=== PATIENT | male | born 1990 | race Asian ===

== ENCOUNTER 2018-11-17 11:16 | Inpatient (IN) | payer MEDICAID, OTHER ==
[~2018-11-17] VITALS: Ht 167.6 cm; Wt 68.9 kg
[2018-11-17] MEDS ORDERED: DIVA-76 PO (11:48)
[2018-11-17] MEDS ORDERED: PARO20TA24 PO (11:48)
[2018-11-17] MEDS ORDERED: DIVA125T32 PO (11:48)
[2018-11-17] MEDS ORDERED: ARIP5TAB8 PO (11:48)
[2018-11-17] MEDS ORDERED: PARO10TA89 PO (11:48)
[2018-11-17] MEDS ORDERED: QUET25TA PO (11:48)
[2018-11-17] MEDS ORDERED: PRAZ1 PO (11:48)
[2018-11-17 12:07] LABS: BASOPHILS % (AUTO) 0.3 % (0.0-2.0); HEMATOCRIT 46.8 % (41-53); HEMOGLOBIN 15.3 g/dL (13.5-17.5); LYMPHOCYTES % (AUTO) 13.6 % (22.0-44.0); MEAN CORPUSCULAR HEMOGLOBIN 29.8 pg (26.0-34.0); MEAN CORPUSCULAR HGB CONC 32.8 G/dL (31.0-37.0); MEAN CORPUSCULAR VOLUME 91 fL (80-100); MONOCYTES # (AUTO) 0.5 K/uL (0.1-1.0); MONOCYTES % (AUTO) 6.2 % (2.0-9.0); NEUTROPHILS # (AUTO) 6.1 K/uL (1.8-7.7); NEUTROPHILS % (AUTO) 78.9 % (40.0-70.0); PLATELET COUNT (AUTO) 217 K/uL (150-450); RED BLOOD CELL COUNT(AUTO) 5.15 MIL/uL (4.50-5.90); RED CELL DISTRIBUTION WIDTH 12.5 % (11.5-14.5)
[2018-11-17] MEDS ORDERED: SODIUM CHLORIDE 0.9% 250 ML IRRIG SOLUTION BOTTLE IRRIG ONE (12:15)
[2018-11-17] MEDS ORDERED: PERTUSS(ACELL),DIPH,TET VAC/PF 0.5 ML VIAL IM ONE (12:15)
[2018-11-17 12:57] LABS: ANION GAP 10 mmol/L (8-16); CALCIUM, TOTAL 10.2 mg/dL (8.8-10.5); CARBON DIOXIDE 28 mmol/L (22-29); CHLORIDE 102 mmol/L (98-107); CREATININE 1.17 mg/dL (0.60-1.30); GLOMERULAR FILTR. RATE CALC > 60 mL/min (>60); GLUCOSE,RANDOM 98 mg/dL (70-110); POTASSIUM 4.3 mmol/L (3.5-5.1); SODIUM SERUM 140 mmol/L (136-145); UREA NITROGEN, BLOOD 11 mg/dL (7-18)
[2018-11-17 13:03] LABS: ALANINE AMINOTRANSFERASE 42 U/L (12-78); ALBUMIN 4.3 g/dL (3.4-5.0); ALKALINE PHOSPHATASE 64 U/L (46-116); ASPARTATE AMINOTRANSFERASE 30 U/L (15-37); BILIRUBIN,TOTAL 0.3 mg/dL (0.1-1.0); TOTAL PROTEIN, SERUM 8.2 g/dL (6.4-8.2)
[2018-11-17 13:14] LABS: VALPROIC ACID 88 mcg/mL (50-100)
[2018-11-17] MEDS ORDERED: HALOPERIDOL 5 MG TABLET PO PRN (13:15)
[2018-11-17 16:11] VITALS: BP 135/90
[2018-11-17] MEDS ORDERED: ONDANSETRON HCL 4 MG TABLET PO PRN (19:45)
[2018-11-17] MEDS ORDERED: NICOTINE 14 MG/24 HOUR PATCH TD PRN (19:45)
[2018-11-17] MEDS ORDERED: IBUPROFEN 400 MG TABLET PO PRN (19:45)
[2018-11-17] MEDS ORDERED: ALBUTEROL SULFATE HFA 90 MCG/PUFF 8 GM INHALER IH PRN (19:45)
[2018-11-17] MEDS ORDERED: DOCUSATE SODIUM 100 MG CAPSULE PO PRN (19:45)
[2018-11-17] MEDS ORDERED: LOPERAMIDE HCL 2 MG CAPSULE PO PRN (19:45)
[2018-11-17] MEDS ORDERED: PETROLATUM,WHITE 28 GM JELLY TP PRN (19:45)
[2018-11-17] MEDS ORDERED: CloNIDine HCL 0.1 MG TABLET PO PRN (19:45)
[2018-11-17] MEDS ORDERED: MAG HYDROX/AL HYDROX/SIMETH ES 30 ML SUSPENSION UDCUP PO PRN (19:45)
[2018-11-17] MEDS ORDERED: MAGNESIUM HYDROXIDE SUSPENSION 30 ML UDCUP PO PRN (19:45)
[2018-11-17] MEDS ORDERED: GuaiFENesin/D-METHORPHAN [SUGAR-FREE] 200-20MG/10 ML SYRUP UDCUP PO PRN (19:45)
[2018-11-17] MEDS ORDERED: ACETAMINOPHEN 325 MG TABLET PO PRN (19:45)
[2018-11-18 05:22] VITALS: BP 128/76
[2018-11-18 06:42] LABS: BASOPHILS % (AUTO) 0.4 % (0.0-2.0); EOSINOPHILS % (AUTO) 4.4 % (1.0-6.0); HEMATOCRIT 45.3 % (41-53); HEMOGLOBIN 15.1 g/dL (13.5-17.5); LYMPHOCYTES % (AUTO) 31.6 % (22.0-44.0); MEAN CORPUSCULAR HEMOGLOBIN 30.4 pg (26.0-34.0); MEAN CORPUSCULAR HGB CONC 33.4 G/dL (31.0-37.0); MEAN CORPUSCULAR VOLUME 91 fL (80-100); MONOCYTES # (AUTO) 0.6 K/uL (0.1-1.0); MONOCYTES % (AUTO) 8.9 % (2.0-9.0); NEUTROPHILS # (AUTO) 3.5 K/uL (1.8-7.7); NEUTROPHILS % (AUTO) 54.7 % (40.0-70.0); PLATELET COUNT (AUTO) 214 K/uL (150-450); RED BLOOD CELL COUNT(AUTO) 4.97 MIL/uL (4.50-5.90); RED CELL DISTRIBUTION WIDTH 12.7 % (11.5-14.5)
[2018-11-18 07:16] LABS: ALANINE AMINOTRANSFERASE 36 U/L (12-78); ALBUMIN 3.7 g/dL (3.4-5.0); ALKALINE PHOSPHATASE 55 U/L (46-116); ANION GAP 5 mmol/L (8-16); ASPARTATE AMINOTRANSFERASE 26 U/L (15-37); BILIRUBIN,TOTAL 0.4 mg/dL (0.1-1.0); CALCIUM, TOTAL 9.8 mg/dL (8.8-10.5); CARBON DIOXIDE 32 mmol/L (22-29); CHLORIDE 104 mmol/L (98-107); CHOL/HDL RATIO 4.2 (4.2-7.3); CHOLESTEROL 142 mg/dL (131-200); CREATININE 0.98 mg/dL (0.60-1.30); GLOMERULAR FILTR. RATE CALC > 60 mL/min (>60); GLUCOSE,RANDOM 79 mg/dL (70-110); HDL CHOLESTEROL 34 mg/dL (40-60); LDL CHOL (CALC.) 73 mg/dL (0-130); POTASSIUM 4.6 mmol/L (3.5-5.1); SODIUM SERUM 141 mmol/L (136-145); THYROID STIMULATING HORMONE 1.61 uIU/mL (0.36-3.74); TOTAL PROTEIN, SERUM 6.8 g/dL (6.4-8.2); TRIGLYCERIDES 175 mg/dL (15-150); UREA NITROGEN, BLOOD 16 mg/dL (7-18)
[2018-11-18 07:58] LABS: HEMOGLOBIN A1C 5.6 % (4.5-6.2)
[2018-11-18 08:05] VITALS: BP 116/70
[2018-11-18 16:04] VITALS: BP 123/83
[2018-11-18] MEDS: QUEtiapine FUMARATE 100 MG TABLET PO SCH (20:36)
[2018-11-18] MEDS: LORazepam 2 MG TABLET PO PRN (20:37)
[2018-11-18] MEDS: ZOLPIDEM TARTRATE 10 MG TABLET PO PRN (20:37)
[2018-11-18] MEDS: DIVALPROEX SODIUM 250 MG DR TABLET PO SCH (20:37)
[2018-11-19 06:28] VITALS: BP 118/82
[2018-11-19 07:23] LABS: BILIRUBIN,URINE NEGATIVE (NEGATIVE); GLUCOSE, URINE (UA) NEGATIVE (NEGATIVE); KETONES,URINE NEGATIVE (NEGATIVE); LEUKOCYTE ESTERASE ,URINE NEGATIVE (NEGATIVE); NITRATE,URINE NEGATIVE (NEGATIVE); OCCULT BLOOD,URINE NEGATIVE (NEGATIVE); PH,URINE 7.5 (5.0-8.0); PROTEIN,URINE NEGATIVE (NEGATIVE); UROBILINOGEN,URINE 0.2 mg/dL (<=1.0)
[2018-11-19 07:28] LABS: APPEARANCE,URINE HAZY (CLEAR)
[2018-11-19 07:31] LABS: AMPHET/METH SCREEN,URINE NEGATIVE (NEGATIVE); BARBITURATE SCREEN, URINE NEGATIVE (NEGATIVE); BENZODIAZEPINES SCREEN,URINE NEGATIVE (NEGATIVE); CANNABINOID SCREEN,URINE NEGATIVE (NEGATIVE); COCAINE SCREEN,URINE NEGATIVE (NEGATIVE); METHADONE SCREEN, URINE NEGATIVE (NEGATIVE); OPIATE SCREEN,URINE NEGATIVE (NEGATIVE)
[2018-11-19 07:36] LABS: PHENCYCLIDINE SCREEN,URINE NEGATIVE (NEGATIVE)
[2018-11-19 08:04] VITALS: BP 112/76
[2018-11-19] MEDS: DIVALPROEX SODIUM 250 MG DR TABLET PO SCH ×2 (08:54→21:00)
[2018-11-19 16:23] VITALS: BP 143/78
[2018-11-19] MEDS: LORazepam 2 MG TABLET PO PRN (16:27)
[2018-11-19] MEDS ORDERED: DiphenhydrAMINE HCL 50 MG/ML VIAL ONE (19:02)
[2018-11-19] MEDS ORDERED: HALOPERIDOL LACTATE 5 MG/ML VIAL ONE (19:02)
[2018-11-19] MEDS ORDERED: LORazepam 2 MG/ML VIAL ONE (19:03)
[2018-11-19] MEDS ORDERED: LORazepam 2 MG/ML VIAL IM ONE (19:15)
[2018-11-19] MEDS ORDERED: HALOPERIDOL LACTATE 5 MG/ML VIAL IM ONE (19:15)
[2018-11-19] MEDS ORDERED: DiphenhydrAMINE HCL 50 MG/ML VIAL IM ONE (19:15)
[2018-11-19] MEDS: QUEtiapine FUMARATE 100 MG TABLET PO SCH (21:00)
[2018-11-20 08:11] VITALS: BP 138/69
[2018-11-20] MEDS: DIVALPROEX SODIUM 250 MG DR TABLET PO SCH ×2 (08:45→21:15)
[2018-11-20] MEDS: BACITRACIN 28.4 GM OINTMENT TP SCH ×2 (09:27→17:27)
[2018-11-20 16:54] VITALS: BP 142/67
[2018-11-20] MEDS: ZOLPIDEM TARTRATE 10 MG TABLET PO PRN (21:15)
[2018-11-20] MEDS: QUEtiapine FUMARATE 100 MG TABLET PO SCH (21:15)
[2018-11-21 08:04] VITALS: BP 128/82
[2018-11-21] MEDS: BACITRACIN 28.4 GM OINTMENT TP SCH ×2 (09:06→16:30)
[2018-11-21] MEDS: DIVALPROEX SODIUM 250 MG DR TABLET PO SCH ×2 (09:06→20:11)
[2018-11-21 16:04] VITALS: BP 140/85
[2018-11-21] MEDS: ZOLPIDEM TARTRATE 10 MG TABLET PO PRN (20:11)
[2018-11-21] MEDS: QUEtiapine FUMARATE 100 MG TABLET PO SCH (20:11)
[2018-11-22 06:23] VITALS: BP 126/82
[2018-11-22 08:03] VITALS: BP 138/91
[2018-11-22] MEDS: DIVALPROEX SODIUM 250 MG DR TABLET PO SCH ×2 (08:11→21:00)
[2018-11-22] MEDS: BACITRACIN 28.4 GM OINTMENT TP SCH ×2 (08:11→16:27)
[2018-11-22 16:00] VITALS: BP 140/72
[2018-11-22] MEDS: LORazepam 2 MG TABLET PO PRN (17:15)
[2018-11-22] MEDS: QUEtiapine FUMARATE 100 MG TABLET PO SCH (20:59)
[2018-11-22] MEDS: ZOLPIDEM TARTRATE 10 MG TABLET PO PRN (21:00)
[2018-11-23 04:22] VITALS: BP 105/67
[2018-11-23 08:36] VITALS: BP 139/78
[2018-11-23] MEDS: BACITRACIN 28.4 GM OINTMENT TP SCH ×2 (08:45→16:40)
[2018-11-23] MEDS: DIVALPROEX SODIUM 250 MG DR TABLET PO SCH ×2 (08:46→20:46)
[2018-11-23 16:00] VITALS: BP 138/82
[2018-11-23] MEDS: ZOLPIDEM TARTRATE 10 MG TABLET PO PRN (20:46)
[2018-11-23] MEDS: LORazepam 2 MG TABLET PO PRN (20:46)
[2018-11-23] MEDS: QUEtiapine FUMARATE 100 MG TABLET PO SCH (20:46)
[2018-11-24 06:28] VITALS: BP 140/88
[2018-11-24 08:20] VITALS: BP 120/79
[2018-11-24] MEDS: DIVALPROEX SODIUM 250 MG DR TABLET PO SCH ×2 (08:38→20:46)
[2018-11-24] MEDS: BACITRACIN 28.4 GM OINTMENT TP SCH ×2 (08:39→17:01)
[2018-11-24 16:14] VITALS: BP 142/88
[2018-11-24] MEDS: QUEtiapine FUMARATE 100 MG TABLET PO SCH (20:46)
[2018-11-24] MEDS: LORazepam 2 MG TABLET PO PRN (20:46)
[2018-11-25 03:36] VITALS: BP 109/66
[2018-11-25 08:09] VITALS: BP 133/74
[2018-11-25] MEDS: DIVALPROEX SODIUM 250 MG DR TABLET PO SCH ×2 (09:22→20:25)
[2018-11-25] MEDS: BACITRACIN 28.4 GM OINTMENT TP SCH ×2 (09:22→16:31)
[2018-11-25 16:22] VITALS: BP 130/80
[2018-11-25] MEDS: QUEtiapine FUMARATE 100 MG TABLET PO SCH (20:25)
[2018-11-25] MEDS: ZOLPIDEM TARTRATE 10 MG TABLET PO PRN (20:25)
[2018-11-26 04:11] VITALS: BP_SYST 118; BP_SYST 128; BP_DIAS 82; BP_DIAS 85
[2018-11-26 08:15] VITALS: BP 137/83
[2018-11-26] MEDS: BACITRACIN 28.4 GM OINTMENT TP SCH ×2 (08:28→16:39)
[2018-11-26] MEDS: DIVALPROEX SODIUM 250 MG DR TABLET PO SCH ×2 (08:28→20:16)
[2018-11-26 16:06] VITALS: BP 123/79
[2018-11-26] MEDS: ZOLPIDEM TARTRATE 10 MG TABLET PO PRN (20:16)
[2018-11-26] MEDS: QUEtiapine FUMARATE 100 MG TABLET PO SCH (20:16)
[2018-11-27 05:45] VITALS: BP 118/78
[2018-11-27 08:16] VITALS: BP 131/85
[2018-11-27] MEDS: DIVALPROEX SODIUM 250 MG DR TABLET PO SCH ×2 (08:49→21:06)
[2018-11-27] MEDS: BACITRACIN 28.4 GM OINTMENT TP SCH ×2 (08:52→17:01)
[2018-11-27 16:00] VITALS: BP 130/78
[2018-11-27] MEDS: QUEtiapine FUMARATE 100 MG TABLET PO SCH (21:06)
[2018-11-27] MEDS: LORazepam 2 MG TABLET PO PRN (21:06)
[2018-11-28 08:00] VITALS: BP 134/87
[2018-11-28] MEDS: BENZTROPINE MESYLATE 1 MG TABLET PO SCH ×3 (09:00→16:39)
[2018-11-28] MEDS: DIVALPROEX SODIUM 250 MG DR TABLET PO SCH ×2 (10:03→20:46)
[2018-11-28] MEDS: BACITRACIN 28.4 GM OINTMENT TP SCH ×2 (10:11→16:39)
[2018-11-28 16:00] VITALS: BP 135/88
[2018-11-28] MEDS: QUEtiapine FUMARATE 100 MG TABLET PO SCH (20:46)
[2018-11-28] MEDS: LORazepam 2 MG TABLET PO PRN (20:46)
[2018-11-29 05:44] VITALS: BP 129/86
[2018-11-29 08:13] VITALS: BP 113/65
[2018-11-29] MEDS: BENZTROPINE MESYLATE 1 MG TABLET PO SCH ×2 (08:53→17:00)
[2018-11-29] MEDS: DIVALPROEX SODIUM 250 MG DR TABLET PO SCH (08:53)
[2018-11-29] MEDS: BACITRACIN 28.4 GM OINTMENT TP SCH (08:53)
[2018-11-29] MEDS ORDERED: DIVA-76 PO (15:48)
[2018-11-29] MEDS ORDERED: QUET100T PO (15:48)
[2018-11-29] MEDS ORDERED: BENZ1TAB10 PO (15:48)
[2018-11-29 17:24] VITALS: BP 123/86
== END 2018-11-29 18:37 | disposition home or self-care (01) | DRG 753 ==
LOC: EMS 11:26 → B3A 14:09
DX: F31.5 Bipolar disorder, current episode depressed, severe, with psychotic features (principal); Z91.14 Patient's other noncompliance with medication regimen; R45.851 Suicidal ideations; S60.511A Abrasion of right hand, initial encounter; X58.XXXA Exposure to other specified factors, initial encounter; Y04.0XXA Assault by unarmed brawl or fight, initial encounter; K59.00 Constipation, unspecified; F42.9 Obsessive-compulsive disorder, unspecified; E78.5 Hyperlipidemia, unspecified; Z88.0 Allergy status to penicillin; Z88.1 Allergy status to other antibiotic agents; Z88.2 Allergy status to sulfonamides; Y93.89 Activity, other specified; Y92.89 Other specified places as the place of occurrence of the external cause; Y99.8 Other external cause status; Z79.899 Other long term (current) drug therapy
CPT/HCPCS: 80307; 83036; 84443; 90715; G0480; J1200; J1630; J2060

== ENCOUNTER 2022-03-04 22:18 | Emergency (ER) | payer MEDICAID, OTHER ==
[~2022-03-04] VITALS: Ht 167.6 cm; Wt 70.0 kg
[~2022-03-04 22:18] MED LIST: BENZ1TAB96 PO; DIVA-111 PO; QUET100T PO
[2022-03-05 01:22] VITALS: BP 129/80
[2022-03-05] MEDS ORDERED: LORazepam 1 MG TABLET PO ONE (01:45)
== END 2022-03-05 03:00 | disposition home or self-care (01) ==
LOC: EMS 22:18
DX: F41.9 Anxiety disorder, unspecified (principal); F20.9 Schizophrenia, unspecified; F32.9 Major depressive disorder, single episode, unspecified; Z88.0 Allergy status to penicillin; Z88.2 Allergy status to sulfonamides
CPT/HCPCS: 99283

== ENCOUNTER 2022-03-07 18:51 | Inpatient (IN) | payer MEDICARE, OTHER ==
[~2022-03-07] VITALS: Ht 175.3 cm; Wt 63.6 kg
[2022-03-07] MEDS ORDERED: HYDROmorphone HCL 2 MG/ML SYRINGE IVP ONE (20:30)
[2022-03-07] MEDS ORDERED: SODIUM CHLORIDE 0.9% 1,000 ML IV ONE (20:30)
[2022-03-07 20:35] LABS: BASOPHILS % (AUTO) 0.1 % (0.0-2.0); EOSINOPHILS % (AUTO) 0.4 % (1.0-6.0); HEMATOCRIT 41.3 % (41-53); HEMOGLOBIN 13.8 g/dL (13.5-17.5); LYMPHOCYTES # (AUTO) 0.7 K/uL (1.0-4.8); LYMPHOCYTES % (AUTO) 4.7 % (22.0-44.0); MEAN CORPUSCULAR HEMOGLOBIN 29.3 pg (26.0-34.0); MEAN CORPUSCULAR HGB CONC 33.5 G/dL (31.0-37.0); MEAN CORPUSCULAR VOLUME 87 fL (80-100); MONOCYTES # (AUTO) 1.3 K/uL (0.1-1.0); MONOCYTES % (AUTO) 8.9 % (2.0-9.0); NEUTROPHILS # (AUTO) 12.9 K/uL (1.8-7.7); PLATELET COUNT (AUTO) 180 K/uL (150-450); RED BLOOD CELL COUNT(AUTO) 4.73 MIL/uL (4.50-5.90); RED CELL DISTRIBUTION WIDTH 12.4 % (11.5-14.5)
[2022-03-07 20:38] LABS: NEUTROPHILS % (AUTO) 85.9 % (40.0-70.0)
[2022-03-07 20:45] LABS: ANION GAP 10 mmol/L (8-16); CALCIUM, TOTAL 9.8 mg/dL (8.8-10.5); CARBON DIOXIDE 31 mmol/L (22-29); CHLORIDE 103 mmol/L (98-107); CREATININE 0.85 mg/dL (0.60-1.30); GLUCOSE,RANDOM 105 mg/dL (70-110); POTASSIUM 3.6 mmol/L (3.5-5.1); SODIUM SERUM 144 mmol/L (136-145); UREA NITROGEN, BLOOD 10 mg/dL (7-18)
[2022-03-07 20:46] LABS: GLOMERULAR FILTR. RATE CALC > 60 mL/min (>60)
[2022-03-07 20:56] LABS: ALANINE AMINOTRANSFERASE 68 U/L (12-78); ALBUMIN 3.8 g/dL (3.4-5.0); ALKALINE PHOSPHATASE 84 U/L (46-116); ASPARTATE AMINOTRANSFERASE 43 U/L (15-37); BILIRUBIN,TOTAL 0.8 mg/dL (0.1-1.0); CREATINE KINASE, TOTAL ONLY 83 U/L (39-308); LIPASE 39 U/L (73-393); TOTAL PROTEIN, SERUM 7.2 g/dL (6.4-8.2)
[2022-03-07 20:57] LABS: LACTIC ACID 0.9 mmol/L (0.4-2.0)
[2022-03-07 21:01] LABS: PLATELET MORPHOLOGY COMMENT LARGE PLTS PRESENT
[2022-03-07] MEDS ORDERED: IOHEXOL 300 MG/ML 100 ML VIAL ONE (21:41)
[2022-03-07] MEDS ORDERED: SODIUM CHLORIDE 0.9% 100 ML ONE (21:41)
[2022-03-07] MEDS ORDERED: CIPROFLOXACIN 400 MG/D5% WATER 200 ML IV ONE (22:45)
[2022-03-07] MEDS ORDERED: MetroNIDAZOLE 500 MG/NACL 100 ML IV ONE (23:00)
[2022-03-07] MEDS ORDERED: CefTRIAXone 1 GM/DEXTROSE 50 ML IV ONE (23:00)
[2022-03-07 23:08] LABS: COVID AG,FIA SOURCE NASAL SWAB
[2022-03-07 23:11] LABS: APPEARANCE,URINE CLEAR (CLEAR); BILIRUBIN,URINE NEGATIVE (NEGATIVE); GLUCOSE, URINE (UA) NEGATIVE (NEGATIVE); KETONES,URINE =>150 mg/dL (NEGATIVE); LEUKOCYTE ESTERASE ,URINE NEGATIVE (NEGATIVE); NITRATE,URINE NEGATIVE (NEGATIVE); OCCULT BLOOD,URINE NEGATIVE (NEGATIVE); PH,URINE 7.5 (5.0-8.0); PROTEIN,URINE TRACE mg/dL (NEGATIVE)
[2022-03-07 23:20] LABS: BACTERIA,URINE None Seen /HPF (None Seen); RBC,URINE None Seen /HPF (0-2); SQUAMOUS EPITHELIAL CELL,UR None Seen /LPF (None Seen); WBC,URINE None Seen /HPF (0-5)
[2022-03-08 00:46] VITALS: BP 131/77
[2022-03-08] MEDS: MORPHINE SULFATE 2 MG/ML SYRINGE IVP PRN ×3 (01:26→09:00)
[2022-03-08] MEDS: DEXTROSE 5%-0.45% SODIUM CHL 1,000 ML IV SCH ×2 (01:26→14:50)
[2022-03-08 05:14] VITALS: BP 133/80
[2022-03-08 08:00] VITALS: BP 132/73
[2022-03-08] MEDS ORDERED: SODIUM CHLORIDE 0.9% 500 ML IV ONE (13:11)
[2022-03-08] MEDS: MetroNIDAZOLE 500 MG/NACL 100 ML IV SCH ×2 (13:18→19:32)
[2022-03-08] MEDS ORDERED: VANCOMYCIN HCL 1 GM/VIAL ONE (14:16)
[2022-03-08] MEDS ORDERED: IOHEXOL 240 MG/ML 20 ML VIAL ONE (14:16)
[2022-03-08] MEDS ORDERED: BUPIVACAINE 0.25%/EPI 1:200,000/PF 10 ML VIAL ONE ×4 (14:16→16:49)
[2022-03-08] MEDS ORDERED: RINGERS SOLUTION,LACTATED 1,000 ML IV ONE ×2 (15:27→17:41)
[2022-03-08 16:00] VITALS: BP 124/77
[2022-03-08] MEDS ORDERED: FentaNYL CITRATE PF 100 MCG/2 ML VIAL IVP PRN (17:15)
[2022-03-08] MEDS ORDERED: HYDROmorphone HCL 2 MG/ML SYRINGE IVP PRN ×2 (17:15→18:15)
[2022-03-08] MEDS ORDERED: SUGAMMADEX SODIUM 200 MG/2 ML VIAL IVP ONE (17:31)
[2022-03-08] MEDS ORDERED: MORPHINE SULFATE 4 MG/ML SYRINGE IVP PRN (18:15)
[2022-03-08] MEDS ORDERED: HYDROCODONE/ACETAMINOPHEN 5-325 MG TABLET PO PRN (18:15)
[2022-03-08 19:28] VITALS: BP 119/68
[2022-03-08] MEDS: FAMOTIDINE 20 MG TABLET PO SCH (21:17)
[2022-03-08] MEDS: CefTRIAXone SODIUM 2 GM in DEXTROSE 5%-WATER 50 ML IV SCH (23:35)
[2022-03-09] MEDS ORDERED: BISACODYL 10 MG RECTAL RECTAL SUPPOSITORY PR PRN (00:15)
[2022-03-09] MEDS ORDERED: ALBUTEROL SULFATE 2.5 MG/0.5 ML NEB SOLUTION NEB PRN (00:15)
[2022-03-09] MEDS ORDERED: MAGNESIUM HYDROXIDE SUSPENSION 30 ML UDCUP PO PRN (00:15)
[2022-03-09] MEDS ORDERED: ACETAMINOPHEN 325 MG TABLET PO PRN (00:15)
[2022-03-09] MEDS ORDERED: ZOLPIDEM TARTRATE 5 MG TABLET PO PRN (00:15)
[2022-03-09] MEDS ORDERED: IPRATROPIUM BROMIDE 0.5 MG/2.5 ML NEB SOLUTION NEB PRN (00:15)
[2022-03-09] MEDS ORDERED: ONDANSETRON HCL 4 MG/2 ML VIAL IVP PRN (00:15)
[2022-03-09] MEDS: DEXTROSE 5%-0.45% SODIUM CHL 1,000 ML IV SCH (01:45)
[2022-03-09] MEDS ORDERED: SODIUM CHLORIDE 0.9% 500 ML IV ONE (01:47)
[2022-03-09] MEDS: MORPHINE SULFATE 2 MG/ML SYRINGE IVP PRN ×3 (01:58→08:55)
[2022-03-09] MEDS: MetroNIDAZOLE 500 MG/NACL 100 ML IV SCH ×3 (03:14→19:37)
[2022-03-09 04:30] VITALS: BP 142/93
[2022-03-09] MEDS ORDERED: KETOROLAC TROMETHAMINE 60 MG/2 ML VIAL IM ONE (06:29)
[2022-03-09] MEDS ORDERED: FentaNYL CITRATE PF 100 MCG/2 ML VIAL IVP ONE (06:29)
[2022-03-09] MEDS ORDERED: ROCURONIUM BROMIDE 10 MG/ML 5 ML VIAL IVP ONE (06:29)
[2022-03-09] MEDS ORDERED: LIDOCAINE/PF 2% 5 ML VIAL IM ONE (06:29)
[2022-03-09] MEDS ORDERED: PROPOFOL 1% 20 ML VIAL IVP ONE (06:29)
[2022-03-09] MEDS ORDERED: ONDANSETRON HCL 4 MG/2 ML VIAL IVP ONE (06:29)
[2022-03-09] MEDS ORDERED: METOCLOPRAMIDE HCL 5 MG/ML 2 ML VIAL IVP ONE (06:29)
[2022-03-09 07:29] VITALS: BP 118/73
[2022-03-09 07:35] LABS: EOSINOPHILS % (AUTO) 0 % (1.0-6.0); HEMOGLOBIN 12.4 g/dL (13.5-17.5); LYMPHOCYTES # (AUTO) 0.4 K/uL (1.0-4.8); LYMPHOCYTES % (AUTO) 2.3 % (22.0-44.0); MEAN CORPUSCULAR HEMOGLOBIN 29.5 pg (26.0-34.0); MEAN CORPUSCULAR HGB CONC 33.4 G/dL (31.0-37.0); MEAN CORPUSCULAR VOLUME 88 fL (80-100); MONOCYTES % (AUTO) 6.1 % (2.0-9.0); NEUTROPHILS # (AUTO) 14.4 K/uL (1.8-7.7); PLATELET COUNT (AUTO) 170 K/uL (150-450); RED BLOOD CELL COUNT(AUTO) 4.19 MIL/uL (4.50-5.90); RED CELL DISTRIBUTION WIDTH 12.3 % (11.5-14.5)
[2022-03-09 07:46] LABS: NEUTROPHILS % (AUTO) 91.6 % (40.0-70.0)
[2022-03-09] MEDS: OXYGEN THERAPY IH SCH ×2 (08:00→20:00)
[2022-03-09 08:07] LABS: ALANINE AMINOTRANSFERASE 140 U/L (12-78); ALBUMIN 2.6 g/dL (3.4-5.0); ALKALINE PHOSPHATASE 127 U/L (46-116); ANION GAP 5 mmol/L (8-16); ASPARTATE AMINOTRANSFERASE 62 U/L (15-37); BILIRUBIN,TOTAL 2.7 mg/dL (0.1-1.0); CALCIUM, TOTAL 8.7 mg/dL (8.8-10.5); CARBON DIOXIDE 29 mmol/L (22-29); CHLORIDE 105 mmol/L (98-107); CREATININE 0.86 mg/dL (0.60-1.30); GLOMERULAR FILTR. RATE CALC > 60 mL/min (>60); GLUCOSE,RANDOM 124 mg/dL (70-110); POTASSIUM 4.1 mmol/L (3.5-5.1); SODIUM SERUM 139 mmol/L (136-145); TOTAL PROTEIN, SERUM 5.9 g/dL (6.4-8.2); UREA NITROGEN, BLOOD 7 mg/dL (7-18)
[2022-03-09] MEDS: FAMOTIDINE 20 MG TABLET PO SCH ×2 (08:45→21:25)
[2022-03-09] MEDS: DIVALPROEX SODIUM 250 MG DR TABLET PO SCH ×3 (08:46→21:00)
[2022-03-09] MEDS: BENZTROPINE MESYLATE 1 MG TABLET PO SCH ×3 (08:47→21:00)
[2022-03-09] MEDS ORDERED: PANTOPRAZOLE SODIUM 40 MG/VIAL IVP SCH (09:00)
[2022-03-09] MEDS ORDERED: DOCUSATE SODIUM 100 MG CAPSULE PO SCH (09:00)
[2022-03-09] MEDS: HYDROCODONE/ACETAMINOPHEN 5-325 MG TABLET PO PRN ×2 (10:16→16:58)
[2022-03-09 15:42] VITALS: BP 117/72
[2022-03-09 19:38] VITALS: BP 124/77
[2022-03-09] MEDS ORDERED: QUEtiapine FUMARATE 100 MG TABLET PO SCH (21:00)
[2022-03-09] MEDS: CefTRIAXone SODIUM 2 GM in DEXTROSE 5%-WATER 50 ML IV SCH (22:42)
[2022-03-10] MEDS: DEXTROSE 5%-0.45% SODIUM CHL 1,000 ML IV SCH (01:22)
[2022-03-10] MEDS: MetroNIDAZOLE 500 MG/NACL 100 ML IV SCH ×3 (03:57→19:40)
[2022-03-10 04:24] VITALS: BP 126/78
[2022-03-10 06:59] LABS: BASOPHILS % (AUTO) 0.4 % (0.0-2.0); EOSINOPHILS % (AUTO) 1.4 % (1.0-6.0); HEMATOCRIT 39.4 % (41-53); HEMOGLOBIN 13.1 g/dL (13.5-17.5); LYMPHOCYTES # (AUTO) 1.4 K/uL (1.0-4.8); LYMPHOCYTES % (AUTO) 15.1 % (22.0-44.0); MEAN CORPUSCULAR HEMOGLOBIN 29.4 pg (26.0-34.0); MEAN CORPUSCULAR HGB CONC 33.3 G/dL (31.0-37.0); MEAN CORPUSCULAR VOLUME 89 fL (80-100); MONOCYTES # (AUTO) 0.5 K/uL (0.1-1.0); MONOCYTES % (AUTO) 5.8 % (2.0-9.0); NEUTROPHILS % (AUTO) 77.3 % (40.0-70.0); PLATELET COUNT (AUTO) 203 K/uL (150-450); RED BLOOD CELL COUNT(AUTO) 4.45 MIL/uL (4.50-5.90); RED CELL DISTRIBUTION WIDTH 12.6 % (11.5-14.5)
[2022-03-10 07:22] LABS: ALANINE AMINOTRANSFERASE 105 U/L (12-78); ALBUMIN 2.8 g/dL (3.4-5.0); ALKALINE PHOSPHATASE 122 U/L (46-116); ANION GAP 7 mmol/L (8-16); ASPARTATE AMINOTRANSFERASE 32 U/L (15-37); BILIRUBIN,TOTAL 0.8 mg/dL (0.1-1.0); CALCIUM, TOTAL 9.2 mg/dL (8.8-10.5); CARBON DIOXIDE 30 mmol/L (22-29); CHLORIDE 105 mmol/L (98-107); CREATININE 0.75 mg/dL (0.60-1.30); GLUCOSE,RANDOM 83 mg/dL (70-110); POTASSIUM 3.1 mmol/L (3.5-5.1); SODIUM SERUM 142 mmol/L (136-145); TOTAL PROTEIN, SERUM 6.5 g/dL (6.4-8.2); UREA NITROGEN, BLOOD 3 mg/dL (7-18)
[2022-03-10 07:23] LABS: GLOMERULAR FILTR. RATE CALC > 60 mL/min (>60)
[2022-03-10 08:00] VITALS: BP 141/72
[2022-03-10] MEDS: OXYGEN THERAPY IH SCH ×2 (08:00→19:40)
[2022-03-10] MEDS: FAMOTIDINE 20 MG TABLET PO SCH ×2 (08:28→21:12)
[2022-03-10] MEDS: BENZTROPINE MESYLATE 1 MG TABLET PO SCH (08:30)
[2022-03-10] MEDS: DIVALPROEX SODIUM 250 MG DR TABLET PO SCH (08:30)
[2022-03-10] MEDS: HYDROCODONE/ACETAMINOPHEN 5-325 MG TABLET PO PRN (09:02)
[2022-03-10] MEDS ORDERED: POTASSIUM CHL 10 MEQ/WATER 50 ML IV PRN (13:00)
[2022-03-10] MEDS ORDERED: RisperiDONE 4 MG TABLET PO SCH (13:00)
[2022-03-10] MEDS: POTASSIUM CHLORIDE 20 MEQ ER TABLET PO PRN (15:08)
[2022-03-10 16:00] VITALS: BP 127/89
[2022-03-10 19:40] VITALS: BP 129/81
[2022-03-10] MEDS: RisperiDONE 4 MG TABLET PO SCH (21:12)
[2022-03-10] MEDS: CefTRIAXone SODIUM 2 GM in DEXTROSE 5%-WATER 50 ML IV SCH (23:13)
[2022-03-11] MEDS: POTASSIUM CHLORIDE 20 MEQ ER TABLET PO PRN (00:36)
[2022-03-11] MEDS: MetroNIDAZOLE 500 MG/NACL 100 ML IV SCH ×3 (03:18→20:01)
[2022-03-11 04:49] VITALS: BP 113/66
[2022-03-11] MEDS: HYDROCODONE/ACETAMINOPHEN 5-325 MG TABLET PO PRN (05:34)
[2022-03-11 05:37] LABS: BASOPHILS % (AUTO) 0.8 % (0.0-2.0); EOSINOPHILS % (AUTO) 4.3 % (1.0-6.0); HEMATOCRIT 42.2 % (41-53); HEMOGLOBIN 14.1 g/dL (13.5-17.5); LYMPHOCYTES # (AUTO) 1.3 K/uL (1.0-4.8); LYMPHOCYTES % (AUTO) 18.4 % (22.0-44.0); MEAN CORPUSCULAR HEMOGLOBIN 29.6 pg (26.0-34.0); MEAN CORPUSCULAR HGB CONC 33.5 G/dL (31.0-37.0); MEAN CORPUSCULAR VOLUME 88 fL (80-100); MONOCYTES # (AUTO) 0.5 K/uL (0.1-1.0); MONOCYTES % (AUTO) 7.6 % (2.0-9.0); NEUTROPHILS # (AUTO) 4.9 K/uL (1.8-7.7); NEUTROPHILS % (AUTO) 68.9 % (40.0-70.0); PLATELET COUNT (AUTO) 268 K/uL (150-450); RED BLOOD CELL COUNT(AUTO) 4.78 MIL/uL (4.50-5.90); RED CELL DISTRIBUTION WIDTH 12.4 % (11.5-14.5)
[2022-03-11 05:53] LABS: ALANINE AMINOTRANSFERASE 105 U/L (12-78); ALBUMIN 3.2 g/dL (3.4-5.0); ALKALINE PHOSPHATASE 152 U/L (46-116); ANION GAP 7 mmol/L (8-16); ASPARTATE AMINOTRANSFERASE 52 U/L (15-37); BILIRUBIN,TOTAL 0.8 mg/dL (0.1-1.0); CALCIUM, TOTAL 9.6 mg/dL (8.8-10.5); CARBON DIOXIDE 32 mmol/L (22-29); CHLORIDE 101 mmol/L (98-107); GLUCOSE,RANDOM 90 mg/dL (70-110); POTASSIUM 4.1 mmol/L (3.5-5.1); SODIUM SERUM 140 mmol/L (136-145); TOTAL PROTEIN, SERUM 7.2 g/dL (6.4-8.2); UREA NITROGEN, BLOOD 5 mg/dL (7-18)
[2022-03-11 05:56] LABS: GLOMERULAR FILTR. RATE CALC > 60 mL/min (>60)
[2022-03-11] MEDS: OXYGEN THERAPY IH SCH ×2 (08:00→20:01)
[2022-03-11] MEDS: FAMOTIDINE 20 MG TABLET PO SCH ×2 (08:21→20:02)
[2022-03-11] MEDS: FluvoxaMINE MALEATE 50 MG TABLET PO SCH (08:21)
[2022-03-11] MEDS: BuPROPion HCL XL 150 MG ER TABLET PO SCH (08:21)
[2022-03-11 08:37] VITALS: BP 103/63
[2022-03-11 15:48] VITALS: BP 120/72
[2022-03-11] MEDS: RisperiDONE 4 MG TABLET PO SCH (20:02)
[2022-03-11 20:14] VITALS: BP 127/77
[2022-03-11] MEDS: CefTRIAXone SODIUM 2 GM in DEXTROSE 5%-WATER 50 ML IV SCH (23:37)
[2022-03-12] MEDS: MetroNIDAZOLE 500 MG/NACL 100 ML IV SCH ×3 (03:36→20:17)
[2022-03-12 04:05] VITALS: BP 106/59
[2022-03-12 07:44] LABS: BASOPHILS % (AUTO) 0.6 % (0.0-2.0); EOSINOPHILS % (AUTO) 7.1 % (1.0-6.0); HEMATOCRIT 40.3 % (41-53); HEMOGLOBIN 13.4 g/dL (13.5-17.5); LYMPHOCYTES % (AUTO) 12.5 % (22.0-44.0); MEAN CORPUSCULAR HEMOGLOBIN 29.4 pg (26.0-34.0); MEAN CORPUSCULAR HGB CONC 33.2 G/dL (31.0-37.0); MEAN CORPUSCULAR VOLUME 88 fL (80-100); MONOCYTES # (AUTO) 0.7 K/uL (0.1-1.0); MONOCYTES % (AUTO) 8.4 % (2.0-9.0); NEUTROPHILS # (AUTO) 5.8 K/uL (1.8-7.7); NEUTROPHILS % (AUTO) 71.4 % (40.0-70.0); PLATELET COUNT (AUTO) 298 K/uL (150-450); RED BLOOD CELL COUNT(AUTO) 4.56 MIL/uL (4.50-5.90); RED CELL DISTRIBUTION WIDTH 12.4 % (11.5-14.5)
[2022-03-12 08:06] LABS: ALANINE AMINOTRANSFERASE 203 U/L (12-78); ALBUMIN 2.9 g/dL (3.4-5.0); ALKALINE PHOSPHATASE 152 U/L (46-116); ANION GAP 6 mmol/L (8-16); ASPARTATE AMINOTRANSFERASE 252 U/L (15-37); BILIRUBIN,TOTAL 0.6 mg/dL (0.1-1.0); CALCIUM, TOTAL 9.3 mg/dL (8.8-10.5); CARBON DIOXIDE 31 mmol/L (22-29); CHLORIDE 102 mmol/L (98-107); CREATININE 0.82 mg/dL (0.60-1.30); GLUCOSE,RANDOM 88 mg/dL (70-110); POTASSIUM 4.1 mmol/L (3.5-5.1); SODIUM SERUM 139 mmol/L (136-145); TOTAL PROTEIN, SERUM 6.5 g/dL (6.4-8.2); UREA NITROGEN, BLOOD 12 mg/dL (7-18)
[2022-03-12 08:07] LABS: GLOMERULAR FILTR. RATE CALC > 60 mL/min (>60)
[2022-03-12 08:21] VITALS: BP 106/66
[2022-03-12] MEDS: FluvoxaMINE MALEATE 50 MG TABLET PO SCH (08:57)
[2022-03-12] MEDS: FAMOTIDINE 20 MG TABLET PO SCH ×2 (08:57→20:17)
[2022-03-12] MEDS: BuPROPion HCL XL 150 MG ER TABLET PO SCH (08:57)
[2022-03-12] MEDS ORDERED: CLIN300C58 PO (10:41)
[2022-03-12] MEDS ORDERED: LEVO750T68 PO (10:41)
[2022-03-12 15:31] VITALS: BP 102/67
[2022-03-12 20:10] VITALS: BP 100/60
[2022-03-12] MEDS: RisperiDONE 4 MG TABLET PO SCH (20:17)
[2022-03-12] MEDS: CefTRIAXone SODIUM 2 GM in DEXTROSE 5%-WATER 50 ML IV SCH (22:30)
[2022-03-13] MEDS: MetroNIDAZOLE 500 MG/NACL 100 ML IV SCH (03:44)
[2022-03-13 06:30] VITALS: BP 105/62
[2022-03-13 06:45] LABS: BASOPHILS % (AUTO) 0.6 % (0.0-2.0); EOSINOPHILS % (AUTO) 10.1 % (1.0-6.0); HEMATOCRIT 39.8 % (41-53); HEMOGLOBIN 13.3 g/dL (13.5-17.5); LYMPHOCYTES # (AUTO) 1.1 K/uL (1.0-4.8); LYMPHOCYTES % (AUTO) 13.2 % (22.0-44.0); MEAN CORPUSCULAR HEMOGLOBIN 29.5 pg (26.0-34.0); MEAN CORPUSCULAR HGB CONC 33.3 G/dL (31.0-37.0); MEAN CORPUSCULAR VOLUME 89 fL (80-100); MONOCYTES # (AUTO) 0.8 K/uL (0.1-1.0); MONOCYTES % (AUTO) 9.8 % (2.0-9.0); NEUTROPHILS # (AUTO) 5.5 K/uL (1.8-7.7); NEUTROPHILS % (AUTO) 66.3 % (40.0-70.0); PLATELET COUNT (AUTO) 326 K/uL (150-450); PROTHROMBIN TIME 10.8 SEC (9.4-11.6); RED BLOOD CELL COUNT(AUTO) 4.49 MIL/uL (4.50-5.90); RED CELL DISTRIBUTION WIDTH 12.5 % (11.5-14.5)
[2022-03-13 06:52] LABS: ALANINE AMINOTRANSFERASE 388 U/L (12-78); ALKALINE PHOSPHATASE 151 U/L (46-116); ANION GAP 2 mmol/L (8-16); ASPARTATE AMINOTRANSFERASE 363 U/L (15-37); BILIRUBIN,TOTAL 0.5 mg/dL (0.1-1.0); CALCIUM, TOTAL 9.4 mg/dL (8.8-10.5); CARBON DIOXIDE 32 mmol/L (22-29); CHLORIDE 103 mmol/L (98-107); CREATININE 0.89 mg/dL (0.60-1.30); GLUCOSE,RANDOM 97 mg/dL (70-110); POTASSIUM 4.4 mmol/L (3.5-5.1); SODIUM SERUM 137 mmol/L (136-145); TOTAL PROTEIN, SERUM 6.6 g/dL (6.4-8.2); UREA NITROGEN, BLOOD 12 mg/dL (7-18)
[2022-03-13 06:56] LABS: GLOMERULAR FILTR. RATE CALC > 60 mL/min (>60)
[2022-03-13 07:54] VITALS: BP 100/58
[2022-03-13] MEDS: BuPROPion HCL XL 150 MG ER TABLET PO SCH (09:16)
[2022-03-13] MEDS: FluvoxaMINE MALEATE 50 MG TABLET PO SCH (09:16)
[2022-03-13] MEDS: FAMOTIDINE 20 MG TABLET PO SCH (09:16)
== END 2022-03-13 12:45 | DRG 854 ==
LOC: EMS 18:51 → 6S 03-08 00:51
PROVIDERS: ADMIT Hospitalist; ATTEND Hospitalist
PROC: 0FT40ZZ Resection of Gallbladder, Open Approach (ICD-10-PCS; principal; 2022-03-08 16:20)
DX: A41.9 Sepsis, unspecified organism (principal); K80.01 Calculus of gallbladder with acute cholecystitis with obstruction; K82.A1 Gangrene of gallbladder in cholecystitis; F42.9 Obsessive-compulsive disorder, unspecified; D64.9 Anemia, unspecified; R73.9 Hyperglycemia, unspecified; E87.6 Hypokalemia; F32.A Depression, unspecified; Z88.1 Allergy status to other antibiotic agents; Z88.0 Allergy status to penicillin; Z79.899 Other long term (current) drug therapy; Z88.2 Allergy status to sulfonamides
CPT/HCPCS: 74177; 80053; 81001; 82550; 83605; 83690; 84132; 85025; 85610; 86850; 86900; 86901; 87081; 88300; 88304; 99285; C9113; G0238; G0378; J0690; J0696; J0744; J1170; J1885; J2270; J2405; J2704; J2765; J3010; J3370; J3490; J7030; J7040; J7050; J7060; J7120; Q9966; Q9967

== ENCOUNTER 2022-10-13 20:29 | Emergency (ER) | payer MEDICARE, OTHER ==
[~2022-10-13] VITALS: Ht 172.7 cm; Wt 59.1 kg
[~2022-10-13 20:29] MED LIST changes: +BENZ1TAB84 PO; -BENZ1TAB96 PO; +CLIN300C58 PO; +LEVO750T68 PO
[2022-10-13 21:16] VITALS: BP 122/88
[2022-10-13] MEDS ORDERED: LORazepam 1 MG TABLET PO ONE (22:15)
== END 2022-10-13 22:50 | disposition home or self-care (01) ==
LOC: EMS 20:29
DX: F41.9 Anxiety disorder, unspecified (principal); F32.A Depression, unspecified; F20.9 Schizophrenia, unspecified; Z88.0 Allergy status to penicillin; Z88.2 Allergy status to sulfonamides; Z88.8 Allergy status to other drugs, medicaments and biological substances
CPT/HCPCS: 99283